=== PATIENT | male | born 1985 | race Caucasian/White ===

== ENCOUNTER 2020-06-09 13:48 | Emergency (ER) | payer BC, SELFPAY ==
[2020-06-09 13:49] VITALS: BP 112/56; PULSE 86; RESP 15; TEMP 36.6; O2SAT 99; BMI 26.2
--- NOTE | 2020-06-09 14:09 | RAD_ITS ---
STUDY: X-RAY CHEST REASON FOR EXAM: Male, 34 years old. TRAUMA - LAC RT SIDE CHEST WALL ANTERIOR/LATERAL TOWARDS LOWER HALF. APPEARS T/B FROM WORKING ON CAR. TECHNIQUE: PA and lateral views of the chest. COMPARISON: None. FINDINGS: Cardiac silhouette unremarkable. Pulmonary vascularity unremarkable. Aorta unremarkable. No focal airspace opacities. No pleural effusions. Upper abdomen unremarkable. Osseous structures intact. No pneumothorax. RAD/Chest PA and Lateral IMPRESSION: No acute cardiopulmonary process identified. Electronically Signed: Bharath Webster, at 16:02 EDT Tel , Service support ,
--- NOTE | 2020-06-09 14:11 | ED.DCSUM_ITS ---
History of Present Illness Informant: Patient, Friend, [employer] Onset: Today Context: Sudden Onset Timing: Continuous Quality: Sharp Location: right chest Current Severity: Severe Maximum Severity: Severe Worsened by: Movement and palpation Relieved by: nothing Associated Symptoms: Laceration Narrative: 34-year-old male presents with a right-sided chest wound. 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 The hydraulic piston that propels the back of the dump truck broke off and slammed into the right side of his chest. States it grazed him and he has a large laceration on the right side of his chest. He is not short of breath. He denies abdominal pain. He is not lightheaded or dizzy. Denies nausea or vomiting. He did not hit his head and he denies any other injuries. He is not on anticoagulation. His tetanus is up-to-date. Prior similar symptoms: No Recent Illness/Hospitalization: No <Mendoza Hi - Last Filed: 06/09/20 15:17> <Maria Escobar - Last Filed: 06/09/20 15:39> Chief Complaint: Trauma Past Medical History Prior records reviewed: Yes Past Medical History: None Surgical History: no surgical history Lives: With Family Smoking Status: Unknown if ever smoked Alcohol: Occasional Drugs: None <Mendoza Hi - Last Filed: 06/09/20 15:17> <Maria Escobar - Last Filed: 06/09/20 15:39> - Allergies and Home Meds Allergies/Adverse Reactions: Allergies No Known Allergies Allergy (Verified 06/09/20 13:49) Primary Care Physician: Jamal Murguia MD [STAFF PHYSICIAN] - 10 Day for suture removal Review of Systems All systems negative except as indicated General: Denies: Chills, Fever, Sweats Eyes: Denies: Visual changes - bilaterally, Diplopia ENT: Denies: Rhinorrhea, Sore throat Cardiovascular: Denies: Chest pain, Palpitations Respiratory: Denies: Dyspnea, Cough, Dyspnea on exertion Gastrointestinal: Denies: Abdominal pain, Nausea, Vomiting, Diarrhea, Melena, Hematochezia Genitourinary: Denies: Dysuria, Hematuria, Frequency Musculoskeletal: Denies: Back pain, Swelling, Extremity Pain Skin: Reports: Abrasions, Wounds. Denies: Rash Neurological: Denies: Headache, Weakness, Parasthesia, Numbness <Mendoza Hi - Last Filed: 06/09/20 15:17> Physical Exam Vital Signs/Narrative: Vital Signs Temp Pulse Resp BP Pulse Ox 06/09/20 13:49 97.8 F 86 15 112/56 L 99 Inital Vital Signs reviewed: Yes General: Well nourished, Well developed, No Acute Distress Head: Normocephalic, Atraumatic Eyes: Perrl, EOMI ENT: Moist mucous membranes, No rhinorrhea Neck: Supple, Nontender Cardiovascular: Regular rate, Regular rhythm, No murmurs Respiratory: No distress, CTA bilaterally, Chest tenderness - Patient has an 18 cm laceration on the right axillary line. It is superficial. There is no surrounding crepitus palpated or deformities. Abdomen is soft and nontender. Lungs are clear equal bilaterally Abdomen: Soft, Nontender, Nondistended, Normal bowel sounds Back: Nontender, Normal Inspection Extremities: Nontender, No edema, - - Patient has a 4 cm laceration over his right hip. He has no bony tenderness over his hip he has normal range of motion actively of the right lower extremity. Neurovascularly intact distally Skin: Normal color, No rash, Trauma Neurological: Alert, Oriented x3, Cranial nerves II-XII grossly intact, Normal Strength, Normal Sensation, Normal Gait Psychological: Normal affect, Normal Mood <Mendoza Hi - Last Filed: 06/09/20 15:17> Vital Signs/Narrative: Vital Signs Temp Pulse Resp BP Pulse Ox 06/09/20 13:49 97.8 F 86 15 112/56 L 99 <Maria Escobar - Last Filed: 06/09/20 15:39> Diagnostic/Tx/Re-eval Chest X-Ray - ED: 2 View, Read by ED Physician, Read by Radiologist, No Acute Disease - Medical Decision Making Patient's tetanus is already up-to-date. On exam the patient has an 18 cm laceration over his right lateral chest mid axillary line. There is no surrounding crepitus. He is not having any abdominal pain on palpation. Abdomen is soft nontender. Stat chest x-ray shows no acute abnormality. Discussed with patient that we did not find any evidence of pneumothorax on his chest x-ray but we did offer him labs and a CT scan of his abdomen and pelvis he declines. We did anesthetized with a total of 40 cc of lidocaine, it was then thoroughly irrigated and cleansed and a total of 34 lilliana were used for approximation of the wound. Patient tolerated well. Discussed with patient proper wound care. Patient was given signs of infection to monitor for and was advised to have these removed in 7 to 10 days. <Mendoza Hi - Last Filed: 06/09/20 15:17> - Medical Decision Making Patient was seen with Mendoza arevalo with history and physical as above, the patient has a very long laceration involving the right side of the abdomen, mechanism is as above, after we were able to obtain pain control by numbing the large laceration he had no pain to palpation of the chest or the abdomen, the laceration underwent sterile prep copious irrigation and then standard closure with lilliana with good results post the procedure were explained the above to the patient we explained we could do ED evaluation with labs CT of the abdomen etc. he however declined stating he felt fine now that he was numb had no chest pain no shortness of breath 1 to go home understood wound care instructions he apparently is very active with his work duties we have asked him not to do anything where he could dehisce the wound and he understands <Maria Escobar - Last Filed: 06/09/20 15:39> Procedures - Lacerations No standard instances Length: 7.09 in Depth: Skin Shape: Linear Prep: Sterile Conditions, Chlorhexadine Laceration repair: Irrigated, Lidocaine, Lidocaine with epi, Local, Wound explored Irrigated (ml): 120 Number of Sutures/Lilliana: 34 - lilliana <Mendoza Hi - Last Filed: 06/09/20 15:17> ED Disposition <Mendoza Hi - Last Filed: 06/09/20 15:17> <Maria Escobar - Last Filed: 06/09/20 15:39> - Plan for ED Patient: Disposition: Home or Assisted Living Diagnosis: Laceration of right chest wall Instructions: ED Laceration All Closures Prescriptions: Hydrocodone Bitart/Apap 5-325 [[place] 5MG-325MG] 1 tab PO Q6H PRN PRN 3 Days #10 tab PRN Reason: Pain Transmission Status: Received by [id number] Referrals: Jamal Murguia MD [STAFF PHYSICIAN] - 10 Day for suture removal
[2020-06-09] MEDS: Ondansetron ODT 4 MG Tablet 8 MG PO (14:22)
[2020-06-09] MEDS: morphine 8 MG/ML Syringe IM (14:22)
[2020-06-09 15:49] VITALS: BP 158/86
== END 2020-06-09 15:50 | disposition home or self-care (01) ==
LOC: ED 15:30
PROVIDERS: Emergency Provider Physician Assistant Medical
DX: S21.111A Laceration without foreign body of right front wall of thorax without penetration into thoracic cavity, initial encounter (principal); W22.8XXA Striking against or struck by other objects, initial encounter; Y93.89 Activity, other specified; Y92.9 Unspecified place or not applicable; Y99.9 Unspecified external cause status
CPT/HCPCS: 12005; 71046; 96372; 99284; J7030

== ENCOUNTER 2024-12-12 03:00 | Emergency (ER) | payer MEDICAID, SELFPAY ==
[2024-12-12 03:01] VITALS: BP 178/108; PULSE 102; RESP 16; TEMP 36.1; O2SAT 98; BMI 31.6
[2024-12-12] MEDS: oxyCODONE 5 MG Tablet PO (03:17)
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
== END 2024-12-12 04:25 | disposition home or self-care (01) ==
PROVIDERS: Emergency Provider Emergency Medicine; Visit Provider Emergency Medicine
DX: S62.022A Displaced fracture of middle third of navicular [scaphoid] bone of left wrist, initial encounter for closed fracture (principal); S80.11XA Contusion of right lower leg, initial encounter; S50.811A Abrasion of right forearm, initial encounter; S50.812A Abrasion of left forearm, initial encounter; S80.211A Abrasion, right knee, initial encounter; S80.212A Abrasion, left knee, initial encounter; S30.810A Abrasion of lower back and pelvis, initial encounter; V86.56XA Driver of dirt bike or motor/cross bike injured in nontraffic accident, initial encounter; F17.210 Nicotine dependence, cigarettes, uncomplicated
CPT/HCPCS: 29125; 73110; 99282